=== PATIENT | female | born 1940 | race Caucasian/White ===

== ENCOUNTER 2016-07-06 09:49 | Inpatient (IN) | payer OTHER ==
[~2016-07-06] VITALS: Ht 157.5 cm; Wt 69.0 kg
[~2016-07-06 09:49] MED LIST: ADULT LOW DOSE81 M1 PO; ALTACE5 MG PO; AMLODIPINE BESY10 MG PO; AMLODIPINE BESYL5 MG PO; APRESOLINE100 MG PO; ASPIR 8181 M1 PO; ASPIR-LOW81 MG PO; ASPIR-TRIN325 M1 PO; ATORVASTATIN CA40 MG PO; Altace PO; Ascorbic Acid,Ester- PO; B-121000 MC2 PO; B-12500 MC1 SL; BACTRIM,SEPT1 TABLET PO; BAYER CHEWABLE81 MG PO; BAYER MIGRAINE1 EACH PO; CARAFATE100 MG/ML PO; CARVEDILOL12.5 MG PO; CARVEDILOL3.125 MG PO; CELEXA10 MG PO; CITALOPRAM HBR10 MG PO; COREG12.5 M1 PO; COUMADIN4 MG PO; COZAAR50 MG PO; CYANOCOBALAM1000 MCG PO; Coreg PO; DONEPEZIL HCL5 MG PO; DOXYCYCLINE HY100 MG PO; Dulcolax PO; ENDOCET 5-3251 EACH PO; FENOFIBRATE145 M1 PO; FENOFIBRATE160 M1 PO; FEROSUL325 MG PO; FUROSEMIDE40 MG PO; Feosol PO; Folvite PO; GLIPIZIDE XL10 MG PO; GLIPIZIDE10 MG PO; GLUCOTROL XL10 MG PO; Glucotrol PO; IRON PO; IRON325 M1 PO; IRON45 MG PO; JANUVIA100 MG PO; K-DUR20 MEQ PO; LANTUS 10100 UNITS/ SC; LANTUS 3 M100 UNITS1 SC; LEVAQUIN750 MG PO; LEVOTHYROXINE75 MCG PO; LIDODERM 5% P1 PATCH TD; LIPITOR40 MG PO; LOSARTAN POTASS50 MG PO; Levemir Flexpen SC; Levothroid,Synthroid PO; Lipitor PO; Lovenox SC; METOCLOPRAMIDE10 MG PO; MOBIC7.5 MG PO; MULTIVITAMIN1 EAC2 PO; Maalox, Mylanta PO; Milk Of Magnesia,MOM PO; Miralax, Glycolax PO; NEXIUM40 MG PO; NovoLOG Pen 3 ml SC; OMEPRAZOLE40 M1 PO; RAMIPRIL5 MG PO; Reglan PO; SUCRALFATE1 GM PO; SYNTHROID75 MCG PO; Senokot S,Pericolace PO; TIROSINT75 MCG PO; TRADJENTA5 MG PO; TRAMADOL HCL50 MG PO; TRAZODONE HCL50 MG PO; TYLENOL ARTHRI650 M2 PO; TYLENOL ARTHRI650 MG PO; TYLENOL REGULA325 MG PO; Theragran PO; Tricor PO; Tums,OsCal PO; ULTRACET1 TABLET PO; Ultram PO; VALSARTAN160 MG PO; VITAMIN B-12250 MCG PO; VITAMIN D-32000 UNIT PO; VITAMIN D1000 UNIT PO; VITAMIN D31000 UNI2 PO; VITAMIN D31000 UNIT PO; Vitamin B-12 PO; Vitamin D, Drisdol PO; XANAX0.25 MG PO; ZETIA10 MG PO; ZOFRAN4 MG PO; Zetia PO; celeXA PO
[2016-07-06 12:10] LABS: HEMATOCRIT 29.9 % (36.0-46.0); MCH 31.8 PG (29.0-34.0); MCHC 34.4 G/DL (30.0-36.0); MCV 92.3 FL (83-99); MEAN PLAT.VOLUME 10.4 uM^3 (9.5-12.4); PLATELET COUNT 178 K/uL (156-360); RBC DIS.WIDTH-CV 13.6 % (11.8-14.6); RBC DIS.WIDTH-SD 43.7 % (39-53); RED BLOOD COUNT 3.24 M/uL (3.80-5.20); WHITE BLOOD COUNT 5.2 K/uL (4.1-10.2)
[2016-07-06 12:22] LABS: CHLORIDE 109 mEq/L (99-109); POTASSIUM 3.8 mEq/L (3.7-5.4); SODIUM 142 mEq/L (136-147)
[2016-07-06 12:24] LABS: GLUCOSE 131 mg/dL (70-99)
[2016-07-06 12:25] LABS: ANION GAP 11 MEQ/L (2-14)
[2016-07-06 12:26] LABS: TOTAL BILIRUBIN 0.8 mg/dL (0.0-1.0)
[2016-07-06 12:28] LABS: ALKALINE PHOSPHATASE 61 IU/L (3-129); GFR ESTIMATE (CALCULATED) 42 mL/min/
[2016-07-06 12:29] LABS: UREA NITROGEN (BUN) 14 mg/dL (9-23)
[2016-07-06 18:46] LABS: TROP-I INTERPRETATION NEGATIVE; TROPONIN-I 0.03 ng/mL (0.0-0.30)
[2016-07-06 19:25] LABS: ADD MIUA? NO; BILIRUBIN NEGATIVE; BLOOD NEGATIVE; COLOR YELLOW ((YELLOW)); GLUCOSE (STRIP) NEGATIVE; KETONES NEGATIVE; LEUKOCYTES NEGATIVE; NITRITE NEGATIVE; PH, URINE 6.5 (5-8); PROTEIN (STRIP) NEGATIVE; UCUL ADDED? NO
[2016-07-06 21:36] VITALS: BP 131/60
[2016-07-07] VITALS: BP 133/70
[2016-07-07 00:54] LABS: POINT-OF-CARE METER ID UU13113700
[2016-07-07 04:46] VITALS: BP 149/70
[2016-07-07 06:52] LABS: ANION GAP 8 MEQ/L (2-14); CHLORIDE 107 MEQ/L (99-109); GFR ESTIMATE (CALCULATED) 42 mL/min/; GLUCOSE 123 mg/dL (70-99); POTASSIUM 3.7 MEQ/L (3.7-5.4); SAMPLE HEMOLYSIS CHECK 0; SAMPLE ICTERIC CHECK 0; SAMPLE LIPEMIA CHECK 0; SODIUM 143 MEQ/L (136-147); UREA NITROGEN (BUN) 13 mg/dL (9-23)
[2016-07-07 08:11] LABS: POINT-OF-CARE METER ID UU13113700
[2016-07-07 08:31] VITALS: BP 153/70
[2016-07-07] MEDS ORDERED: LEVOTHYROXINE75 MCG PO (10:09)
[2016-07-07] MEDS ORDERED: CARVEDILOL3.125 MG PO (10:15)
[2016-07-07] MEDS ORDERED: TRAMADOL HCL50 MG PO (10:15)
[2016-07-07] MEDS ORDERED: DONEPEZIL HCL5 MG PO (10:16)
[2016-07-07] MEDS ORDERED: AMLODIPINE BESY10 MG PO (10:17)
[2016-07-07] MEDS ORDERED: SUCRALFATE1 GM PO (10:17)
[2016-07-07] MEDS ORDERED: VALSARTAN160 MG PO (10:18)
[2016-07-07] MEDS ORDERED: FENOFIBRATE145 M1 PO (10:19)
[2016-07-07] MEDS ORDERED: TRAZODONE HCL50 MG PO (10:20)
[2016-07-07] MEDS ORDERED: ESOMEPRAZOLE MA40 MG PO (10:21)
[2016-07-07] MEDS ORDERED: ZETIA10 MG PO (10:21)
[2016-07-07] MEDS ORDERED: CYANOCOBALAM1000 MCG PO (10:22)
[2016-07-07] MEDS ORDERED: LO-DOSE ASPIRIN81 M2 PO (10:22)
[2016-07-07] MEDS ORDERED: VITAMIN D31000 UNIT PO (10:24)
[2016-07-07 12:14] VITALS: BP 148/72
[2016-07-07 13:10] LABS: POINT-OF-CARE METER ID UU14162513
[2016-07-07 15:12] LABS: INTER. NORMALIZED RATIO 1.3; PROTHROMBIN TIME 12.8 (9.2-11.2); PTT 25.7 (25-32)
[2016-07-07 15:47] LABS: TYPE OF FLUID PLEURAL
[2016-07-07 16:10] LABS: BODY FLUID RBC'S 1000 /MM^3 (0-100); BODY FLUID WBC'S 323 /MM^3 (0-500)
[2016-07-07 16:26] LABS: RED CELL AREA COUNTED ND; RED CELL DILUTION ND; WBC AREA COUNTED ND; WBC DILUTION ND; WHITE CELL RAW COUNT ND
[2016-07-07 16:32] LABS: BODY FLUID EOSINOPHILS 0 % (0-25); MONO RAW COUNT 64; MONONUCLEAR WBC'S 64 %; POLY RAW COUNT 36; POLYNUCLEAR WBC'S 36 % (0-25)
[2016-07-07 16:43] LABS: GLUCOSE 112 mg/dL (70-99); LACTATE DEHYDROGENASE 154 IU/L (20-246)
[2016-07-07 16:49] LABS: POINT-OF-CARE METER ID UU14162513
[2016-07-07 16:52] VITALS: BP 114/58
[2016-07-07 16:54] LABS: BODY FLUID LDH 89 IU/L; BODY FLUID PROTEIN < 3.0 G/DL
[2016-07-08 05:46] VITALS: BP 129/88
[2016-07-08 07:35] VITALS: BP 139/62
[2016-07-08 08:30] LABS: HEMATOCRIT 30.6 % (36.0-46.0); MCH 30.7 PG (29.0-34.0); MCHC 33.7 G/DL (30.0-36.0); MCV 91.1 FL (83-99); MEAN PLAT.VOLUME 10.8 uM^3 (9.5-12.4); PLATELET COUNT 193 K/uL (156-360); RBC DIS.WIDTH-CV 13.8 % (11.8-14.6); RBC DIS.WIDTH-SD 45.3 % (39-53); RED BLOOD COUNT 3.36 M/uL (3.80-5.20); WHITE BLOOD COUNT 4.7 K/uL (4.1-10.2)
[2016-07-08 09:02] LABS: CHLORIDE 107 MEQ/L (99-109); GFR ESTIMATE (CALCULATED) 46 mL/min/; POTASSIUM 3.7 MEQ/L (3.7-5.4); SODIUM 142 MEQ/L (136-147); TOTAL BILIRUBIN 0.8 MG/DL (0.0-1.0); UREA NITROGEN (BUN) 14 mg/dL (9-23)
[2016-07-08 09:03] LABS: ALKALINE PHOSPHATASE 51 IU/L (3-129); ANION GAP 9 MEQ/L (2-14); SAMPLE HEMOLYSIS CHECK 0; SAMPLE ICTERIC CHECK 0; SAMPLE LIPEMIA CHECK 0
[2016-07-08 09:06] LABS: GLUCOSE 63 mg/dL (70-99)
[2016-07-08 09:10] VITALS: BP 119/58
[2016-07-08 09:39] LABS: POINT-OF-CARE METER ID UU14162513
[2016-07-08 11:19] VITALS: BP 142/62
[2016-07-08 13:31] LABS: POINT-OF-CARE METER ID UU14162513
[2016-07-08 16:22] VITALS: BP 138/83
[2016-07-08 17:19] LABS: POINT-OF-CARE METER ID UU14162513
[2016-07-08 20:45] VITALS: BP 146/67
[2016-07-09 00:16] LABS: BODY FLUID PH 8.2 (())
[2016-07-09 00:26] VITALS: BP 94/49
[2016-07-09 04:25] VITALS: BP 133/60
[2016-07-09 06:53] LABS: POINT-OF-CARE METER ID UU14162513
[2016-07-09 08:00] VITALS: BP 136/71
[2016-07-09 13:00] LABS: POINT-OF-CARE METER ID UU13113831
== END 2016-07-09 15:09 | disposition home or self-care (01) | DRG 291 ==
LOC: EME 09:49 → EDOF 15:52 → 5WEST 15:52 → EDOF 17:18 → 5WEST 19:34
PROVIDERS: Hospitalist; Internal Medicine; Nurse Practitioner Adult Health; Nurse Practitioner Family; Radiology Diagnostic Radiology
PROC: 0W9B3ZZ Drainage of Left Pleural Cavity, Percutaneous Approach (ICD-10-PCS; principal; 2016-07-07)
DX: I13.0 Hypertensive heart and chronic kidney disease with heart failure and stage 1 through stage 4 chronic kidney disease, or unspecified chronic kidney disease (principal); I50.23 Acute on chronic systolic (congestive) heart failure; E11.22 Type 2 diabetes mellitus with diabetic chronic kidney disease; N18.3 Chronic kidney disease, stage 3 (moderate); L89.150 Pressure ulcer of sacral region, unstageable; I25.10 Atherosclerotic heart disease of native coronary artery without angina pectoris; I25.5 Ischemic cardiomyopathy; E78.5 Hyperlipidemia, unspecified; E03.9 Hypothyroidism, unspecified; I35.0 Nonrheumatic aortic (valve) stenosis; I34.2 Nonrheumatic mitral (valve) stenosis; E78.00 Pure hypercholesterolemia, unspecified; J45.909 Unspecified asthma, uncomplicated; D63.1 Anemia in chronic kidney disease; F03.90 Unspecified dementia, unspecified severity, without behavioral disturbance, psychotic disturbance, mood disturbance, and anxiety; Z79.4 Long term (current) use of insulin; I25.2 Old myocardial infarction; Z86.718 Personal history of other venous thrombosis and embolism; Z79.01 Long term (current) use of anticoagulants; Z79.82 Long term (current) use of aspirin
CPT/HCPCS: 71010; 71020; 80048; 80053; 81003; 82945; 82947 91; 82948; 83615; 83615 91; 83880; 83986 90; 84155; 84157; 84484; 85027; 85610; 85730; 87070; 87075; 87205; 88108; 88305; 89051; 93005; 93306; 99281; 99285; G0378; J1650; J1815; J1940

== ENCOUNTER 2017-07-31 10:48 | Inpatient (IN) | payer OTHER ==
[~2017-07-31] VITALS: Ht 157.5 cm; Wt 58.8 kg
[~2017-07-31 10:48] MED LIST changes: +ESOMEPRAZOLE MA40 MG PO; +LO-DOSE ASPIRIN81 M2 PO
[2017-07-31 11:25] LABS: BASOPHIL (%) 0.7 % (0-1); EOSINOPHIL COUNT 0.1 K/uL (0-0.3); HEMATOCRIT 32.6 % (36.0-46.0); HEMOGLOBIN 10.9 G/DL (11.9-15.5); IMMATURE GRANULOCYTE (%) 0.4 % (0.0-0.7); LYMPHOCYTE (%) 9.5 % (15-42); LYMPHOCYTE COUNT 0.3 K/uL (1.0-2.8); MCH 33.4 PG (29.0-34.0); MCHC 33.4 G/DL (30.0-36.0); MONOCYTE (%) 8.4 % (3-12); MONOCYTE COUNT 0.2 K/uL (0-0.8); NEUTROPHIL COUNT 2.1 K/uL (1.8-6.4); PLATELET COUNT 101 K/uL (156-360); RBC DIS.WIDTH-CV 13.2 % (11.8-14.6); RBC DIS.WIDTH-SD 49.3 % (39-53); RED BLOOD COUNT 3.26 M/uL (3.80-5.20); WHITE BLOOD COUNT 2.7 K/uL (4.1-10.2)
[2017-07-31 11:44] LABS: TROP-I INTERPRETATION NEGATIVE; TROPONIN-I 0.03 ng/mL (0.0-0.30)
[2017-07-31 11:46] LABS: ALBUMIN 2.1 G/DL (3.2-4.8); CHLORIDE 103 MEQ/L (99-109); POTASSIUM 3.7 MEQ/L (3.7-5.4); SODIUM 141 MEQ/L (136-147); TOTAL BILIRUBIN 1.3 MG/DL (0.0-1.0)
[2017-07-31 11:52] LABS: ALKALINE PHOSPHATASE 56 IU/L (3-129); ALT (GPT) 7 IU/L (3-49); AST (GOT) 41 IU/L (2-34); CREATININE 1.6 MG/DL (0.6-1.3); GFR ESTIMATE (CALCULATED) 33 mL/min/; GLUCOSE 97 mg/dL (70-99); TOTAL PROTEIN 5.1 G/DL (6.4-8.3); UREA NITROGEN (BUN) 21 mg/dL (9-23)
[2017-07-31 13:08] LABS: APPEARANCE CLEAR ((CLEAR)); BILIRUBIN NEGATIVE; BLOOD NEGATIVE; COLOR YELLOW ((YELLOW)); GLUCOSE (STRIP) NEGATIVE; KETONES NEGATIVE; LEUKOCYTES SMALL; NITRITE NEGATIVE; PROTEIN (STRIP) NEGATIVE; SPECIFIC GRAVITY 1.006 (1.000-1.030); UROBILINOGEN 0.2 MG/DL (0.2-1.0)
[2017-07-31 13:12] LABS: BACTERIA 3+ /HPF; CALCIUM OXALATE CRYSTALS 1+ /HPF; EPITHELIAL CELLS 1+ /HPF; MUCUS TRACE /LPF; RED BLOOD CELLS 0-5 /HPF (0-5); UCUL ADDED? YES
[2017-07-31] MEDS ORDERED: ARICEPT5 MG PO (13:42)
[2017-07-31] MEDS ORDERED: TRAZODONE HCL50 MG PO (13:43)
[2017-07-31] MEDS ORDERED: NEXIUM40 MG PO (13:44)
[2017-07-31] MEDS ORDERED: TYLENOL ARTHRI650 MG PO (13:45)
[2017-07-31] MEDS ORDERED: PRAVACHOL40 MG PO (13:45)
[2017-07-31] MEDS ORDERED: LASIX20 MG PO (13:46)
[2017-07-31 15:38] LABS: TROP-I INTERPRETATION NEGATIVE; TROPONIN-I 0.04 ng/mL (0.0-0.30)
[2017-07-31 15:59] VITALS: BP 157/66
[2017-07-31 19:43] VITALS: BP 170/75
[2017-07-31 21:27] LABS: TROP-I INTERPRETATION NEGATIVE; TROPONIN-I 0.05 ng/mL (0.0-0.30)
[2017-07-31 23:26] VITALS: BP 144/66
[2017-08-01 04:29] VITALS: BP 162/72
[2017-08-01 05:39] LABS: HEMATOCRIT 35.1 % (36.0-46.0); HEMOGLOBIN 11.4 G/DL (11.9-15.5); MCH 32.1 PG (29.0-34.0); MCHC 32.5 G/DL (30.0-36.0); MCV 98.9 FL (83-99); PLATELET COUNT 117 K/uL (156-360); RBC DIS.WIDTH-CV 13.2 % (11.8-14.6); RED BLOOD COUNT 3.55 M/uL (3.80-5.20)
[2017-08-01 06:08] LABS: ALBUMIN 2.2 G/DL (3.2-4.8); ALKALINE PHOSPHATASE 48 IU/L (3-129); ALT (GPT) 6 IU/L (3-49); AST (GOT) 42 IU/L (2-34); CHLORIDE 99 MEQ/L (99-109); CREATININE 1.5 MG/DL (0.6-1.3); GFR ESTIMATE (CALCULATED) 36 mL/min/; GLUCOSE 90 mg/dL (70-99); POTASSIUM 3.7 MEQ/L (3.7-5.4); SODIUM 140 MEQ/L (136-147); TOTAL BILIRUBIN 1.5 MG/DL (0.0-1.0); TOTAL PROTEIN 5.2 G/DL (6.4-8.3); UREA NITROGEN (BUN) 22 mg/dL (9-23)
[2017-08-01 07:35] VITALS: BP 130/61
[2017-08-01 12:09] VITALS: BP 145/64
[2017-08-01 15:41] VITALS: BP 136/64
[2017-08-01 20:23] VITALS: BP 133/58
[2017-08-01 23:16] VITALS: BP 137/60
[2017-08-02 03:47] VITALS: BP 138/60
[2017-08-02 08:01] LABS: HEMATOCRIT 34.4 % (36.0-46.0); HEMOGLOBIN 11.4 G/DL (11.9-15.5); MCH 33.2 PG (29.0-34.0); MCHC 33.1 G/DL (30.0-36.0); MCV 100.3 FL (83-99); PLATELET COUNT 106 K/uL (156-360); RBC DIS.WIDTH-CV 13.3 % (11.8-14.6); RBC DIS.WIDTH-SD 49.3 % (39-53); RED BLOOD COUNT 3.43 M/uL (3.80-5.20); WHITE BLOOD COUNT 2.4 K/uL (4.1-10.2)
[2017-08-02 08:22] LABS: ALBUMIN 2.1 G/DL (3.2-4.8); ALKALINE PHOSPHATASE 53 IU/L (3-129); ALT (GPT) 7 IU/L (3-49); AST (GOT) 42 IU/L (2-34); CHLORIDE 98 MEQ/L (99-109); CREATININE 1.8 MG/DL (0.6-1.3); GFR ESTIMATE (CALCULATED) 29 mL/min/; GLUCOSE 82 mg/dL (70-99); POTASSIUM 3.7 MEQ/L (3.7-5.4); SODIUM 138 MEQ/L (136-147); TOTAL BILIRUBIN 1.3 MG/DL (0.0-1.0); UREA NITROGEN (BUN) 25 mg/dL (9-23)
[2017-08-02 09:14] VITALS: BP 138/59
[2017-08-02 12:04] VITALS: BP 136/63
[2017-08-02 15:56] VITALS: BP 111/75
[2017-08-02 20:01] VITALS: BP 128/56
[2017-08-02 23:57] VITALS: BP 131/60
[2017-08-03 03:36] VITALS: BP 144/65
[2017-08-03 06:03] LABS: A/G RATIO 0.7 (1.1-1.8); ALBUMIN 2.1 G/DL (3.4-5.0); C-REACTIVE PROTEIN 40.1 MG/L (0-10); CHLORIDE 100 MEQ/L (99-109); CREATININE 1.8 MG/DL (0.6-1.3); GFR ESTIMATE (CALCULATED) 29 mL/min/; GLOBULINS 2.9 G/DL (2.3-3.5); GLUCOSE 91 mg/dL (70-99); HEMATOCRIT 32.9 % (36.0-46.0); HEMOGLOBIN 10.8 G/DL (11.9-15.5); MCH 32.4 PG (29.0-34.0); MCHC 32.8 G/DL (30.0-36.0); MCV 98.8 FL (83-99); PLATELET COUNT 117 K/uL (156-360); POTASSIUM 4.3 MEQ/L (3.7-5.4); RBC DIS.WIDTH-CV 13.2 % (11.8-14.6); RBC DIS.WIDTH-SD 47.9 % (39-53); RED BLOOD COUNT 3.33 M/uL (3.80-5.20); SODIUM 139 MEQ/L (136-147); UREA NITROGEN (BUN) 34 mg/dL (9-23); WHITE BLOOD COUNT 2.7 K/uL (4.1-10.2)
[2017-08-03 07:59] LABS: FOLIC ACID (FOLATE) 7.5 NG/ML (5.0-22.0)
[2017-08-03 08:45] VITALS: BP 136/65
[2017-08-03 10:49] LABS: ERTH.SED.RATE 25 MM/HR (0-30)
[2017-08-03 12:23] VITALS: BP 112/56
[2017-08-03 16:47] VITALS: BP 119/58
[2017-08-03 20:00] VITALS: BP 107/52
[2017-08-03 23:39] VITALS: BP 108/52
[2017-08-04 03:36] VITALS: BP 123/57
[2017-08-04 05:21] LABS: BASOPHIL (%) 1.3 % (0-1); EOSINOPHIL (%) 4.4 % (0-5); EOSINOPHIL COUNT 0.1 K/uL (0-0.3); HEMATOCRIT 29.5 % (36.0-46.0); IMMATURE GRANULOCYTE (%) 0.4 % (0.0-0.7); LYMPHOCYTE (%) 15.1 % (15-42); LYMPHOCYTE COUNT 0.3 K/uL (1.0-2.8); MCH 33.2 PG (29.0-34.0); MCHC 33.9 G/DL (30.0-36.0); MONOCYTE (%) 11.1 % (3-12); MONOCYTE COUNT 0.3 K/uL (0-0.8); NEUTROPHIL (%) 67.7 % (45-76); NEUTROPHIL COUNT 1.5 K/uL (1.8-6.4); PLATELET COUNT 103 K/uL (156-360); RBC DIS.WIDTH-CV 13.3 % (11.8-14.6); RED BLOOD COUNT 3.01 M/uL (3.80-5.20); WHITE BLOOD COUNT 2.3 K/uL (4.1-10.2)
[2017-08-04 05:54] LABS: CHLORIDE 100 MEQ/L (99-109); CREATININE 1.9 MG/DL (0.6-1.3); GFR ESTIMATE (CALCULATED) 27 mL/min/; GLUCOSE 116 mg/dL (70-99); MAGNESIUM 1.7 mg/dl (1.3-2.7); PHOSPHORUS 2.7 mg/dL (2.5-4.9); POTASSIUM 3.6 MEQ/L (3.7-5.4); SODIUM 138 MEQ/L (136-147); UREA NITROGEN (BUN) 41 mg/dL (9-23)
[2017-08-04 07:25] VITALS: BP 107/55
[2017-08-04 10:04] LABS: ALBUMIN 2.09 G/DL (3.6-4.9); ALPHA-1 GLOBULIN 0.34 G/DL (0.15-0.40); ALPHA-2 GLOBULIN 0.42 G/DL (0.45-0.85); BETA-GLOBULIN 1.45 G/DL (0.65-1.15); GAMMA-GLOBULIN 0.72 G/DL (0.60-1.35)
[2017-08-04 11:03] LABS: HEPATITIS C ANTIBODY Nonreactive
[2017-08-04 16:23] VITALS: BP 119/58
[2017-08-04 19:32] VITALS: BP 113/58
[2017-08-05 00:19] VITALS: BP 115/54
[2017-08-05 04:26] VITALS: BP 124/60
[2017-08-05 07:06] LABS: CHLORIDE 101 MEQ/L (99-109); CREATININE 1.9 MG/DL (0.6-1.3); FERRITIN 378 NG/ML (10-291); GFR ESTIMATE (CALCULATED) 27 mL/min/; GLUCOSE 88 mg/dL (70-99); SODIUM 137 MEQ/L (136-147); UREA NITROGEN (BUN) 47 mg/dL (9-23)
[2017-08-05 07:12] LABS: POTASSIUM 4.6 MEQ/L (3.7-5.4)
[2017-08-05 07:38] VITALS: BP 101/51
[2017-08-05 08:54] LABS: BASOPHIL (%) 0.7 % (0-1); EOSINOPHIL (%) 5.3 % (0-5); EOSINOPHIL COUNT 0.2 K/uL (0-0.3); HEMATOCRIT 30.9 % (36.0-46.0); HEMOGLOBIN 10.4 G/DL (11.9-15.5); IMMATURE GRANULOCYTE (%) 0.4 % (0.0-0.7); LYMPHOCYTE (%) 13.1 % (15-42); LYMPHOCYTE COUNT 0.4 K/uL (1.0-2.8); MCH 33.1 PG (29.0-34.0); MCHC 33.7 G/DL (30.0-36.0); MCV 98.4 FL (83-99); MONOCYTE (%) 8.1 % (3-12); MONOCYTE COUNT 0.2 K/uL (0-0.8); NEUTROPHIL (%) 72.4 % (45-76); NEUTROPHIL COUNT 2.1 K/uL (1.8-6.4); PLATELET COUNT 105 K/uL (156-360); RBC DIS.WIDTH-CV 13.5 % (11.8-14.6); RBC DIS.WIDTH-SD 48.1 % (39-53); RED BLOOD COUNT 3.14 M/uL (3.80-5.20); WHITE BLOOD COUNT 2.8 K/uL (4.1-10.2)
[2017-08-05 10:53] LABS: ABS NEUTROPHIL COUNT 2.5; ANISOCYTOSIS 1+; EOSINOPHIL ABS CT 0.1; EOSINOPHILS 5.1 % (0-5.0); LYMPHOCYTES 1.7 % (15.0-45.0); MACROCYTES 1+; MONOCYTES 3.4 % (0-9.0); PLAT.SUFFICIENCY DECREASED; SEG.NEUTROPHILS 89.8 % (46.0-76.0)
[2017-08-05 17:07] VITALS: BP 110/68
[2017-08-05 19:35] VITALS: BP 106/55
[2017-08-05 23:33] VITALS: BP 105/51
[2017-08-06 06:01] LABS: BASOPHIL (%) 0.7 % (0-1); EOSINOPHIL (%) 6.8 % (0-5); EOSINOPHIL COUNT 0.2 K/uL (0-0.3); HEMATOCRIT 29.6 % (36.0-46.0); HEMOGLOBIN 9.7 G/DL (11.9-15.5); IMMATURE GRANULOCYTE (%) 0.4 % (0.0-0.7); LYMPHOCYTE (%) 10.7 % (15-42); LYMPHOCYTE COUNT 0.3 K/uL (1.0-2.8); MCH 32.3 PG (29.0-34.0); MCHC 32.8 G/DL (30.0-36.0); MCV 98.7 FL (83-99); MONOCYTE (%) 8.9 % (3-12); MONOCYTE COUNT 0.3 K/uL (0-0.8); NEUTROPHIL (%) 72.5 % (45-76); PLATELET COUNT 106 K/uL (156-360); RBC DIS.WIDTH-CV 13.2 % (11.8-14.6); RBC DIS.WIDTH-SD 48.2 % (39-53); WHITE BLOOD COUNT 2.8 K/uL (4.1-10.2)
[2017-08-06 06:30] LABS: CHLORIDE 102 MEQ/L (99-109); CREATININE 2.1 MG/DL (0.6-1.3); GFR ESTIMATE (CALCULATED) 24 mL/min/; POTASSIUM 4.6 MEQ/L (3.7-5.4); SODIUM 136 MEQ/L (136-147); UREA NITROGEN (BUN) 55 mg/dL (9-23)
[2017-08-06 06:40] LABS: GLUCOSE 113 mg/dL (70-99)
[2017-08-06 07:48] VITALS: BP 112/56
[2017-08-06 16:03] VITALS: BP 124/56
[2017-08-07 00:25] VITALS: BP 102/59
[2017-08-07 07:06] LABS: EOSINOPHIL (%) 8.2 % (0-5); EOSINOPHIL COUNT 0.2 K/uL (0-0.3); HEMOGLOBIN 9.9 G/DL (11.9-15.5); IMMATURE GRANULOCYTE (%) 0.5 % (0.0-0.7); LYMPHOCYTE (%) 16.4 % (15-42); LYMPHOCYTE COUNT 0.3 K/uL (1.0-2.8); MONOCYTE (%) 10.6 % (3-12); MONOCYTE COUNT 0.2 K/uL (0-0.8); NEUTROPHIL (%) 63.3 % (45-76); NEUTROPHIL COUNT 1.3 K/uL (1.8-6.4); PLATELET COUNT 92 K/uL (156-360); RBC DIS.WIDTH-CV 13.3 % (11.8-14.6); RBC DIS.WIDTH-SD 49.1 % (39-53); WHITE BLOOD COUNT 2.1 K/uL (4.1-10.2)
[2017-08-07 07:38] LABS: CHLORIDE 104 MEQ/L (99-109); CREATININE 2.2 MG/DL (0.6-1.3); GFR ESTIMATE (CALCULATED) 23 mL/min/; GLUCOSE 93 mg/dL (70-99); POTASSIUM 5.1 MEQ/L (3.7-5.4); SODIUM 138 MEQ/L (136-147); UREA NITROGEN (BUN) 59 mg/dL (9-23)
[2017-08-07 07:50] VITALS: BP 108/54
[2017-08-07 16:23] VITALS: BP 90/42
[2017-08-07 19:57] VITALS: BP 111/55
[2017-08-08 00:05] VITALS: BP 104/51
[2017-08-08 06:07] LABS: ALBUMIN 1.8 G/DL (3.2-4.8); CHLORIDE 104 MEQ/L (99-109); CREATININE 2.1 MG/DL (0.6-1.3); GFR ESTIMATE (CALCULATED) 24 mL/min/; GLUCOSE 94 mg/dL (70-99); POTASSIUM 5.7 MEQ/L (3.7-5.4); SODIUM 136 MEQ/L (136-147); UREA NITROGEN (BUN) 54 mg/dL (9-23)
[2017-08-08 07:54] VITALS: BP 110/56
[2017-08-08 10:19] LABS: CLINICAL INFORMATION NOT PROVIDED; NUMBER OF MARKERS 24; SPECIMEN TYPE BONE MARROW; SPECIMEN VIABILITY 97
[2017-08-08 16:35] VITALS: BP 96/46
[2017-08-08 20:09] VITALS: BP 109/56
[2017-08-08 23:31] VITALS: BP 105/51
[2017-08-09 04:55] LABS: ALBUMIN 2.7 g/dL (3.2-4.8); CHLORIDE 102 mEq/L (99-109); POTASSIUM 4.7 mEq/L (3.7-5.4); SODIUM 133 mEq/L (136-147)
[2017-08-09 04:57] LABS: GLUCOSE 79 mg/dL (70-99)
[2017-08-09 05:01] LABS: GFR ESTIMATE (CALCULATED) 33 mL/min/; PHOSPHORUS 2.5 mg/dL (2.5-4.9)
[2017-08-09 05:02] LABS: UREA NITROGEN (BUN) 44 mg/dL (9-23)
[2017-08-09 05:11] LABS: CREATININE 1.6 mg/dL (0.6-1.3)
[2017-08-09 09:40] VITALS: BP 117/56
[2017-08-09 16:47] VITALS: BP 107/76
[2017-08-10] VITALS: BP 135/78
[2017-08-10 05:28] VITALS: BP 105/54
[2017-08-10 08:12] VITALS: BP 134/63
[2017-08-10] MEDS ORDERED: CARVEDILOL6.25 MG PO (11:20)
[2017-08-10] MEDS ORDERED: FUROSEMIDE40 MG PO (11:21)
[2017-08-10] MEDS ORDERED: TRAMADOL HCL50 MG PO (11:21)
[2017-08-10 15:55] VITALS: BP 120/76
== END 2017-08-10 20:01 | DRG 291 ==
LOC: EME 10:48 → EDOF 12:54 → 3EAST 12:54 → ENRESERV 12:56 → CANRESERV 12:56 → EDOF 13:15 → ENRESERV 13:18 → 3EAST 15:42
PROVIDERS: Emergency Medicine; Internal Medicine; Internal Medicine Hematology & Oncology; Internal Medicine Nephrology; Physician Assistant
PROC: 07DR3ZX Extraction of Iliac Bone Marrow, Percutaneous Approach, Diagnostic (ICD-10-PCS; principal; 2017-08-05)
DX: I13.0 Hypertensive heart and chronic kidney disease with heart failure and stage 1 through stage 4 chronic kidney disease, or unspecified chronic kidney disease (principal); I50.23 Acute on chronic systolic (congestive) heart failure; N17.9 Acute kidney failure, unspecified; N18.3 Chronic kidney disease, stage 3 (moderate); E11.22 Type 2 diabetes mellitus with diabetic chronic kidney disease; D63.1 Anemia in chronic kidney disease; D61.818 Other pancytopenia; N12 Tubulo-interstitial nephritis, not specified as acute or chronic; B96.20 Unspecified Escherichia coli [E. coli] as the cause of diseases classified elsewhere; T47.1X5A Adverse effect of other antacids and anti-gastric-secretion drugs, initial encounter; E87.5 Hyperkalemia; E83.39 Other disorders of phosphorus metabolism; I25.5 Ischemic cardiomyopathy; E46 Unspecified protein-calorie malnutrition; E03.9 Hypothyroidism, unspecified; R19.7 Diarrhea, unspecified; E87.6 Hypokalemia; I35.0 Nonrheumatic aortic (valve) stenosis; F03.90 Unspecified dementia, unspecified severity, without behavioral disturbance, psychotic disturbance, mood disturbance, and anxiety; I25.10 Atherosclerotic heart disease of native coronary artery without angina pectoris; I25.2 Old myocardial infarction; E78.00 Pure hypercholesterolemia, unspecified; I27.20 Pulmonary hypertension, unspecified; J43.9 Emphysema, unspecified; K21.9 Gastro-esophageal reflux disease without esophagitis; F41.9 Anxiety disorder, unspecified; F32.9 Major depressive disorder, single episode, unspecified; Z86.73 Personal history of transient ischemic attack (TIA), and cerebral infarction without residual deficits; R29.6 Repeated falls; Z60.2 Problems related to living alone; Z96.642 Presence of left artificial hip joint; Z90.710 Acquired absence of both cervix and uterus; Z79.82 Long term (current) use of aspirin; Z82.49 Family history of ischemic heart disease and other diseases of the circulatory system; Z82.3 Family history of stroke
CPT/HCPCS: 71046; 74018; 76770; 77012; 77075; 80048; 80053; 80069; 81003; 82232; 82607; 82728; 82746; 82948; 83735; 83880; 83883 90; 84100; 84165; 84484; 85007; 85025; 85027; 85652; 86140; 86334; 86803; 87077; 87086; 87186; 87493; 90686; 93005; 93306; 97530 GO; 99281; 99285; J0696; J1644; J1815; J1940; J3010; J7050; P9047

== ENCOUNTER 2017-10-17 12:58 | Inpatient (IN) | payer OTHER ==
[~2017-10-17] VITALS: Ht 161.3 cm; Wt 60.1 kg
[~2017-10-17 12:58] MED LIST changes: +ACYCLOVIR400 MG PO; +ARICEPT5 MG PO; +CARVEDILOL6.25 MG PO; +DEXAMETHASONE4 MG PO; +LASIX20 MG PO; +LIPITOR10 MG PO; +REMERON15 M2 PO
[2017-10-17 14:42] LABS: HEMATOCRIT 26.2 % (36.0-46.0); MCHC 34.4 G/DL (30.0-36.0); MCV 101.9 FL (83-99); PLATELET COUNT 54 K/uL (156-360); RBC DIS.WIDTH-CV 16.4 % (11.8-14.6); RBC DIS.WIDTH-SD 61.1 % (39-53); RED BLOOD COUNT 2.57 M/uL (3.80-5.20); WHITE BLOOD COUNT 3.9 K/uL (4.1-10.2)
[2017-10-17 14:53] LABS: ALBUMIN 2.2 g/dL (3.2-4.8); CHLORIDE 104 mEq/L (99-109); POTASSIUM 3.7 mEq/L (3.7-5.4); SODIUM 137 mEq/L (136-147)
[2017-10-17 14:55] LABS: GLUCOSE 117 mg/dL (70-99); TOTAL PROTEIN 4.5 g/dL (6.4-8.3)
[2017-10-17 14:57] LABS: TOTAL BILIRUBIN 1.6 mg/dL (0.0-1.0)
[2017-10-17 14:59] LABS: ALKALINE PHOSPHATASE 50 IU/L (3-129); CREATININE 3.1 mg/dL (0.6-1.3); GFR ESTIMATE (CALCULATED) 15 mL/min/
[2017-10-17 15:00] LABS: AST (GOT) 63 IU/L (2-34); UREA NITROGEN (BUN) 54 mg/dL (9-23)
[2017-10-17 15:02] LABS: ALT (GPT) 14 IU/L (3-49)
[2017-10-17 15:40] LABS: APPEARANCE CLEAR ((CLEAR)); BILIRUBIN NEGATIVE; BLOOD NEGATIVE; COLOR YELLOW ((YELLOW)); GLUCOSE (STRIP) NEGATIVE; KETONES NEGATIVE; LEUKOCYTES NEGATIVE; NITRITE NEGATIVE; PROTEIN (STRIP) NEGATIVE; SPECIFIC GRAVITY 1.008 (1.000-1.030); UCUL ADDED? NO; UROBILINOGEN 0.2 MG/DL (0.2-1.0)
[2017-10-17 20:10] VITALS: BP 140/58
[2017-10-18] VITALS (12 sets, daily range): BP systolic 102–146; BP diastolic 54–66
[2017-10-18 06:28] LABS: BASOPHIL (%) 0.3 % (0-1); EOSINOPHIL (%) 3.6 % (0-5); EOSINOPHIL COUNT 0.1 K/uL (0-0.3); HEMATOCRIT 24.5 % (36.0-46.0); HEMOGLOBIN 8.3 G/DL (11.9-15.5); IMMATURE GRANULOCYTE (%) 0.6 % (0.0-0.7); LYMPHOCYTE (%) 7.2 % (15-42); LYMPHOCYTE COUNT 0.2 K/uL (1.0-2.8); MCH 34.6 PG (29.0-34.0); MCHC 33.9 G/DL (30.0-36.0); MCV 102.1 FL (83-99); MONOCYTE COUNT 0.2 K/uL (0-0.8); NEUTROPHIL (%) 82.3 % (45-76); NEUTROPHIL COUNT 2.7 K/uL (1.8-6.4); RBC DIS.WIDTH-CV 16.2 % (11.8-14.6); RBC DIS.WIDTH-SD 61.3 % (39-53); WHITE BLOOD COUNT 3.3 K/uL (4.1-10.2)
[2017-10-18 06:37] LABS: CHLORIDE 109 MEQ/L (99-109); CREATININE 2.7 MG/DL (0.6-1.3); GFR ESTIMATE (CALCULATED) 18 mL/min/; GLUCOSE 70 mg/dL (70-99); POTASSIUM 3.5 MEQ/L (3.7-5.4); SODIUM 142 MEQ/L (136-147); UREA NITROGEN (BUN) 47 mg/dL (9-23)
[2017-10-18 07:11] LABS: PLAT.SUFFICIENCY DECREASED; PLATELET COUNT 47 K/uL (156-360)
[2017-10-18 07:51] LABS: INTER. NORMALIZED RATIO 1.4
[2017-10-18 07:54] LABS: PTT 31.4 SEC (25-37)
[2017-10-18 11:15] LABS: TYPE OF FLUID PLEURAL
[2017-10-18 11:52] LABS: BODY FLUID EOSINOPHILS 1 % (0-25); BODY FLUID RBC'S < 1000 /MM^3 (0-100); BODY FLUID WBC'S 38 /MM^3 (0-500); MONONUCLEAR WBC'S 94 %; POLYNUCLEAR WBC'S 5 % (0-25)
[2017-10-18 12:12] LABS: BODY FLUID GLUCOSE 86 MG/DL; BODY FLUID LDH 73 IU/L; BODY FLUID PROTEIN < 3.0 G/DL
[2017-10-19 00:18] VITALS: BP 137/63
[2017-10-19 06:07] LABS: CHLORIDE 108 MEQ/L (99-109); CREATININE 2.6 MG/DL (0.6-1.3); GFR ESTIMATE (CALCULATED) 19 mL/min/; GLUCOSE 85 mg/dL (70-99); POTASSIUM 3.6 MEQ/L (3.7-5.4); SODIUM 137 MEQ/L (136-147); UREA NITROGEN (BUN) 45 mg/dL (9-23)
[2017-10-19 06:15] LABS: VANCOMYCIN, TROUGH 7.2 MCG/ML (10-20)
[2017-10-19 06:45] LABS: HEMATOCRIT 31.6 % (36.0-46.0); MCH 33.9 PG (29.0-34.0); MCHC 35.4 G/DL (30.0-36.0); NRBC (%) 1.4 /100 WBC (0-0); RBC DIS.WIDTH-CV 17.6 % (11.8-14.6); RBC DIS.WIDTH-SD 60.2 % (39-53); WHITE BLOOD COUNT 3.7 K/uL (4.1-10.2)
[2017-10-19 06:52] LABS: APPEARANCE SL.HAZY/YELLOW
[2017-10-19 07:19] LABS: IMM.PLATELET FRACTION 3.5 (1-7); PLAT.SUFFICIENCY VERY DECREASED; PLATELET COUNT 41 K/uL (156-360)
[2017-10-19 07:20] VITALS: BP 121/64
[2017-10-19 07:24] LABS: HEMOGLOBIN 11.2 G/DL (11.9-15.5); MCV 95.8 FL (83-99)
[2017-10-19 15:25] VITALS: BP 124/68
[2017-10-19 21:40] VITALS: BP 137/63
[2017-10-19 23:53] VITALS: BP 92/58
[2017-10-20 03:27] VITALS: BP 140/60
[2017-10-20 05:44] LABS: BASOPHIL (%) 0.2 % (0-1); EOSINOPHIL (%) 4.6 % (0-5); EOSINOPHIL COUNT 0.2 K/uL (0-0.3); HEMATOCRIT 34.6 % (36.0-46.0); HEMOGLOBIN 12.1 G/DL (11.9-15.5); IMMATURE GRANULOCYTE (%) 0.5 % (0.0-0.7); LYMPHOCYTE (%) 7.2 % (15-42); LYMPHOCYTE COUNT 0.3 K/uL (1.0-2.8); MCV 97.2 FL (83-99); MONOCYTE (%) 9.4 % (3-12); MONOCYTE COUNT 0.4 K/uL (0-0.8); NEUTROPHIL (%) 78.1 % (45-76); NEUTROPHIL COUNT 3.3 K/uL (1.8-6.4); RBC DIS.WIDTH-CV 17.8 % (11.8-14.6); RBC DIS.WIDTH-SD 61.1 % (39-53); RED BLOOD COUNT 3.56 M/uL (3.80-5.20); WHITE BLOOD COUNT 4.2 K/uL (4.1-10.2)
[2017-10-20 05:46] LABS: PLATELET COUNT 70 K/uL (156-360)
[2017-10-20 06:10] LABS: CHLORIDE 109 MEQ/L (99-109); CREATININE 2.5 MG/DL (0.6-1.3); GFR ESTIMATE (CALCULATED) 20 mL/min/; GLUCOSE 69 mg/dL (70-99); SODIUM 138 MEQ/L (136-147); UREA NITROGEN (BUN) 47 mg/dL (9-23)
[2017-10-20 06:15] LABS: POTASSIUM 4.6 MEQ/L (3.7-5.4); VANCOMYCIN, TROUGH 16.1 MCG/ML (10-20)
[2017-10-20 07:30] VITALS: BP 147/65
[2017-10-20 11:50] LABS: C DIFF TOXIN POSITIVE (NEGATIVE)
[2017-10-20 15:40] VITALS: BP 140/64
[2017-10-20] MEDS ORDERED: FERROUS SULFAT325 MG PO (15:46)
[2017-10-20] MEDS ORDERED: FEXOFENADINE H180 MG PO (15:46)
[2017-10-20] MEDS ORDERED: ESOMEPRAZOLE MA40 MG PO (15:46)
[2017-10-20 23:58] VITALS: BP 109/62
[2017-10-21 06:18] LABS: BASOPHIL (%) 0.6 % (0-1); EOSINOPHIL (%) 5.5 % (0-5); EOSINOPHIL COUNT 0.2 K/uL (0-0.3); HEMATOCRIT 36.5 % (36.0-46.0); HEMOGLOBIN 12.1 G/DL (11.9-15.5); IMMATURE GRANULOCYTE (%) 0.3 % (0.0-0.7); LYMPHOCYTE (%) 6.9 % (15-42); LYMPHOCYTE COUNT 0.2 K/uL (1.0-2.8); MCH 33.2 PG (29.0-34.0); MCHC 33.2 G/DL (30.0-36.0); MONOCYTE (%) 10.7 % (3-12); MONOCYTE COUNT 0.4 K/uL (0-0.8); NEUTROPHIL COUNT 2.6 K/uL (1.8-6.4); PLATELET COUNT 72 K/uL (156-360); RBC DIS.WIDTH-CV 17.8 % (11.8-14.6); RBC DIS.WIDTH-SD 63.7 % (39-53); RED BLOOD COUNT 3.65 M/uL (3.80-5.20); WHITE BLOOD COUNT 3.5 K/uL (4.1-10.2)
[2017-10-21 06:39] LABS: CHLORIDE 110 MEQ/L (99-109); CREATININE 2.1 MG/DL (0.6-1.3); GFR ESTIMATE (CALCULATED) 24 mL/min/; POTASSIUM 4.5 MEQ/L (3.7-5.4); SODIUM 140 MEQ/L (136-147); UREA NITROGEN (BUN) 41 mg/dL (9-23)
[2017-10-21 06:40] LABS: GLUCOSE 96 mg/dL (70-99)
[2017-10-21 08:50] VITALS: BP 138/64
[2017-10-21 11:15] VITALS: BP 90/57
[2017-10-21 11:56] VITALS: BP 98/57
[2017-10-21 14:56] VITALS: BP 115/56
[2017-10-21 15:36] VITALS: BP 95/55
[2017-10-21 23:41] VITALS: BP 135/77
[2017-10-22] VITALS (7 sets, daily range): BP systolic 80–152; BP diastolic 47–67
[2017-10-22 06:03] LABS: BASOPHIL COUNT 0.1 K/uL (0-0.1); EOSINOPHIL (%) 7.2 % (0-5); EOSINOPHIL COUNT 0.4 K/uL (0-0.3); HEMATOCRIT 36.2 % (36.0-46.0); HEMOGLOBIN 12.2 G/DL (11.9-15.5); IMMATURE GRANULOCYTE (%) 0.4 % (0.0-0.7); LYMPHOCYTE COUNT 0.4 K/uL (1.0-2.8); MCH 34.5 PG (29.0-34.0); MCHC 33.7 G/DL (30.0-36.0); MCV 102.3 FL (83-99); MONOCYTE (%) 8.5 % (3-12); MONOCYTE COUNT 0.4 K/uL (0-0.8); NEUTROPHIL (%) 75.9 % (45-76); NEUTROPHIL COUNT 3.8 K/uL (1.8-6.4); RBC DIS.WIDTH-CV 17.6 % (11.8-14.6); RBC DIS.WIDTH-SD 65.3 % (39-53); RED BLOOD COUNT 3.54 M/uL (3.80-5.20)
[2017-10-22 06:07] LABS: PLATELET COUNT 128 K/uL (156-360)
[2017-10-22 06:31] LABS: CHLORIDE 107 MEQ/L (99-109); GFR ESTIMATE (CALCULATED) 26 mL/min/; GLUCOSE 98 mg/dL (70-99); POTASSIUM 5.3 MEQ/L (3.7-5.4); SODIUM 137 MEQ/L (136-147); UREA NITROGEN (BUN) 41 mg/dL (9-23)
[2017-10-22 09:42] LABS: TROP-I INTERPRETATION NEGATIVE; TROPONIN-I 0.14 ng/mL (0.0-0.30)
[2017-10-23 06:21] LABS: BASOPHIL (%) 0.8 % (0-1); EOSINOPHIL (%) 7.7 % (0-5); EOSINOPHIL COUNT 0.3 K/uL (0-0.3); HEMOGLOBIN 10.5 G/DL (11.9-15.5); IMMATURE GRANULOCYTE (%) 0.5 % (0.0-0.7); LYMPHOCYTE (%) 3.7 % (15-42); LYMPHOCYTE COUNT 0.1 K/uL (1.0-2.8); MCHC 33.9 G/DL (30.0-36.0); MCV 103.3 FL (83-99); MONOCYTE COUNT 0.5 K/uL (0-0.8); NEUTROPHIL (%) 75.3 % (45-76); NEUTROPHIL COUNT 2.8 K/uL (1.8-6.4); PLATELET COUNT 109 K/uL (156-360); RBC DIS.WIDTH-CV 17.6 % (11.8-14.6); RBC DIS.WIDTH-SD 65.1 % (39-53); WHITE BLOOD COUNT 3.8 K/uL (4.1-10.2)
[2017-10-23 06:46] LABS: CHLORIDE 112 MEQ/L (99-109); CREATININE 1.7 MG/DL (0.6-1.3); GFR ESTIMATE (CALCULATED) 31 mL/min/; GLUCOSE 81 mg/dL (70-99); POTASSIUM 5.2 MEQ/L (3.7-5.4); SODIUM 138 MEQ/L (136-147); UREA NITROGEN (BUN) 36 mg/dL (9-23)
[2017-10-23 07:35] VITALS: BP 134/66
[2017-10-23 11:00] VITALS: BP 131/64
[2017-10-23 15:20] VITALS: BP 130/67
[2017-10-23 18:51] VITALS: BP 140/55
[2017-10-23 22:27] VITALS: BP 130/63
[2017-10-23 23:17] VITALS: BP 130/59
[2017-10-24 03:53] VITALS: BP 120/70
[2017-10-24 06:05] LABS: HEMATOCRIT 29.9 % (36.0-46.0); MCH 34.4 PG (29.0-34.0); MCHC 33.4 G/DL (30.0-36.0); MCV 102.7 FL (83-99); PLATELET COUNT 129 K/uL (156-360); RBC DIS.WIDTH-CV 17.2 % (11.8-14.6); RBC DIS.WIDTH-SD 63.9 % (39-53); RED BLOOD COUNT 2.91 M/uL (3.80-5.20); WHITE BLOOD COUNT 2.9 K/uL (4.1-10.2)
[2017-10-24 06:28] LABS: CHLORIDE 113 MEQ/L (99-109); CREATININE 1.7 MG/DL (0.6-1.3); GFR ESTIMATE (CALCULATED) 31 mL/min/; GLUCOSE 96 mg/dL (70-99); POTASSIUM 5.2 MEQ/L (3.7-5.4); SODIUM 137 MEQ/L (136-147); UREA NITROGEN (BUN) 36 mg/dL (9-23)
[2017-10-24 07:10] VITALS: BP 118/58
[2017-10-24 15:00] VITALS: BP 148/65
[2017-10-24 23:24] VITALS: BP 111/50
[2017-10-25 06:09] LABS: BASOPHIL (%) 1.3 % (0-1); EOSINOPHIL (%) 9.7 % (0-5); EOSINOPHIL COUNT 0.2 K/uL (0-0.3); HEMATOCRIT 29.2 % (36.0-46.0); HEMOGLOBIN 9.8 G/DL (11.9-15.5); LYMPHOCYTE (%) 10.1 % (15-42); LYMPHOCYTE COUNT 0.2 K/uL (1.0-2.8); MCH 34.5 PG (29.0-34.0); MCHC 33.6 G/DL (30.0-36.0); MCV 102.8 FL (83-99); MONOCYTE (%) 13.2 % (3-12); MONOCYTE COUNT 0.3 K/uL (0-0.8); NEUTROPHIL (%) 65.7 % (45-76); NEUTROPHIL COUNT 1.5 K/uL (1.8-6.4); PLATELET COUNT 125 K/uL (156-360); RBC DIS.WIDTH-CV 17.2 % (11.8-14.6); RBC DIS.WIDTH-SD 64.3 % (39-53); RED BLOOD COUNT 2.84 M/uL (3.80-5.20); WHITE BLOOD COUNT 2.3 K/uL (4.1-10.2)
[2017-10-25 07:51] VITALS: BP 130/68
[2017-10-25 07:59] LABS: CHLORIDE 112 MEQ/L (99-109); CREATININE 1.8 MG/DL (0.6-1.3); GFR ESTIMATE (CALCULATED) 29 mL/min/; GLUCOSE 95 mg/dL (70-99); POTASSIUM 5.1 MEQ/L (3.7-5.4); SODIUM 137 MEQ/L (136-147); UREA NITROGEN (BUN) 38 mg/dL (9-23)
[2017-10-25 15:06] VITALS: BP 134/82
[2017-10-26 00:44] VITALS: BP 122/62
[2017-10-26 06:33] LABS: CHLORIDE 112 MEQ/L (99-109); CREATININE 1.9 MG/DL (0.6-1.3); GFR ESTIMATE (CALCULATED) 27 mL/min/; GLUCOSE 74 mg/dL (70-99); POTASSIUM 5.1 MEQ/L (3.7-5.4); SODIUM 138 MEQ/L (136-147); UREA NITROGEN (BUN) 44 mg/dL (9-23)
[2017-10-26 08:26] VITALS: BP 115/57
[2017-10-26 15:10] VITALS: BP 116/57
[2017-10-26 21:16] VITALS: BP 120/50
[2017-10-27 00:45] VITALS: BP 118/56
[2017-10-27 06:23] LABS: HEMATOCRIT 28.5 % (36.0-46.0); HEMOGLOBIN 9.4 G/DL (11.9-15.5); MCH 34.4 PG (29.0-34.0); MCV 104.4 FL (83-99); PLATELET COUNT 134 K/uL (156-360); RBC DIS.WIDTH-CV 17.1 % (11.8-14.6); RBC DIS.WIDTH-SD 65.4 % (39-53); RED BLOOD COUNT 2.73 M/uL (3.80-5.20)
[2017-10-27 07:07] LABS: CHLORIDE 112 MEQ/L (99-109); CREATININE 1.9 MG/DL (0.6-1.3); GFR ESTIMATE (CALCULATED) 27 mL/min/; GLUCOSE 73 mg/dL (70-99); POTASSIUM 4.9 MEQ/L (3.7-5.4); SODIUM 140 MEQ/L (136-147); UREA NITROGEN (BUN) 44 mg/dL (9-23)
[2017-10-27 07:32] VITALS: BP 118/52
[2017-10-27 16:14] VITALS: BP 138/65
[2017-10-27 21:15] VITALS: BP 110/50
[2017-10-28 00:11] VITALS: BP 110/40
[2017-10-28 08:00] VITALS: BP 124/57
[2017-10-28] MEDS ORDERED: DONEPEZIL HCL5 MG PO (09:32)
[2017-10-28] MEDS ORDERED: CORDARONE200 MG PO (09:33)
[2017-10-28] MEDS ORDERED: CARVEDILOL3.125 MG PO (09:33)
[2017-10-28 09:35] VITALS: BP 124/57
[2017-10-28] MEDS ORDERED: VANCOMYCIN HCL125 MG PO (09:39)
== END 2017-10-28 16:33 | DRG 682 ==
LOC: EME 12:58 → 5EAST 17:11 → EDOF 17:11 → ENRESERV 17:13 → ENRESERVTM 17:44 → ENRESERV 17:44 → 5EAST 19:36 → ENPENDDIS 10-28 → 5EAST 10-28 16:33
PROVIDERS: Emergency Medicine; Family Medicine; Hospitalist; Internal Medicine; Internal Medicine Nephrology; Radiology Diagnostic Radiology; Student in an Organized Health Care Education/Training Program
PROC: 0W993ZX Drainage of Right Pleural Cavity, Percutaneous Approach, Diagnostic (ICD-10-PCS; principal; 2017-10-18)
PROC: 0W993ZZ Drainage of Right Pleural Cavity, Percutaneous Approach (ICD-10-PCS; principal; 2017-10-18)
PROC: 30233N1 Transfusion of Nonautologous Red Blood Cells into Peripheral Vein, Percutaneous Approach (ICD-10-PCS; principal; 2017-10-18)
PROC: 0W993ZZ Drainage of Right Pleural Cavity, Percutaneous Approach (ICD-10-PCS; 2017-10-20)
PROC: 0W993ZZ Drainage of Right Pleural Cavity, Percutaneous Approach (ICD-10-PCS; 2017-10-25)
PROC: 0W9930Z Drainage of Right Pleural Cavity with Drainage Device, Percutaneous Approach (ICD-10-PCS; 2017-10-27)
DX: N17.9 Acute kidney failure, unspecified (principal); I13.0 Hypertensive heart and chronic kidney disease with heart failure and stage 1 through stage 4 chronic kidney disease, or unspecified chronic kidney disease; I50.23 Acute on chronic systolic (congestive) heart failure; J90 Pleural effusion, not elsewhere classified; J96.01 Acute respiratory failure with hypoxia; A04.72 Enterocolitis due to Clostridium difficile, not specified as recurrent; I95.9 Hypotension, unspecified; I47.1 Supraventricular tachycardia; I48.0 Paroxysmal atrial fibrillation; E86.0 Dehydration; E87.6 Hypokalemia; E88.09 Other disorders of plasma-protein metabolism, not elsewhere classified; C90.00 Multiple myeloma not having achieved remission; D61.818 Other pancytopenia; E11.22 Type 2 diabetes mellitus with diabetic chronic kidney disease; N18.4 Chronic kidney disease, stage 4 (severe); E78.5 Hyperlipidemia, unspecified; G30.9 Alzheimer's disease, unspecified; F02.80 Dementia in other diseases classified elsewhere, unspecified severity, without behavioral disturbance, psychotic disturbance, mood disturbance, and anxiety; I25.10 Atherosclerotic heart disease of native coronary artery without angina pectoris; I25.5 Ischemic cardiomyopathy; I27.20 Pulmonary hypertension, unspecified; I35.0 Nonrheumatic aortic (valve) stenosis; J43.9 Emphysema, unspecified; R64 Cachexia; K21.9 Gastro-esophageal reflux disease without esophagitis; E03.9 Hypothyroidism, unspecified; F32.9 Major depressive disorder, single episode, unspecified; F41.9 Anxiety disorder, unspecified; Y95 Nosocomial condition; Z66 Do not resuscitate; Z96.642 Presence of left artificial hip joint; I25.2 Old myocardial infarction; Z86.73 Personal history of transient ischemic attack (TIA), and cerebral infarction without residual deficits; Z79.82 Long term (current) use of aspirin
CPT/HCPCS: 32557; 71045; 71046; 76942; 80048; 80053; 80202; 81003; 82565; 82945; 82948; 83605; 83615 91; 83880; 84157; 84484; 85025; 85027; 85610; 85730; 86850; 86900; 86901; 86920; 87040; 87070; 87205; 87493; 89051; 89190; 93005; 93970; 97530 GP; 99202; 99281; 99285; C1729; J0692; J1160; J1940; J2060; J3010; J3370; J7030; J7040; P9016

== ENCOUNTER 2017-10-31 10:17 | Emergency (ER) | payer OTHER ==
[~2017-10-31] VITALS: Ht 153.7 cm; Wt 57.7 kg
[~2017-10-31 10:17] MED LIST changes: +CORDARONE200 MG PO; +FERROUS SULFAT325 MG PO; +FEXOFENADINE H180 MG PO; +VANCOMYCIN HCL125 MG PO
[2017-10-31 11:05] LABS: BASOPHIL (%) 1.4 % (0-1); EOSINOPHIL (%) 8.4 % (0-5); EOSINOPHIL COUNT 0.3 K/uL (0-0.3); HEMATOCRIT 30.4 % (36.0-46.0); HEMOGLOBIN 10.6 G/DL (11.9-15.5); IMMATURE GRANULOCYTE (%) 0.3 % (0.0-0.7); LYMPHOCYTE (%) 7.1 % (15-42); LYMPHOCYTE COUNT 0.2 K/uL (1.0-2.8); MCH 35.8 PG (29.0-34.0); MCHC 34.9 G/DL (30.0-36.0); MCV 102.7 FL (83-99); MONOCYTE (%) 7.1 % (3-12); MONOCYTE COUNT 0.2 K/uL (0-0.8); NEUTROPHIL (%) 75.7 % (45-76); NEUTROPHIL COUNT 2.2 K/uL (1.8-6.4); PLATELET COUNT 128 K/uL (156-360); RBC DIS.WIDTH-CV 16.5 % (11.8-14.6); RED BLOOD COUNT 2.96 M/uL (3.80-5.20)
[2017-10-31 11:10] LABS: INTER. NORMALIZED RATIO 1.2
[2017-10-31 11:17] LABS: CHLORIDE 106 mEq/L (99-109); POTASSIUM 4.4 mEq/L (3.7-5.4); SODIUM 137 mEq/L (136-147)
[2017-10-31 11:18] LABS: GLUCOSE 73 mg/dL (70-99)
[2017-10-31 11:22] LABS: GFR ESTIMATE (CALCULATED) 26 mL/min/
[2017-10-31 11:23] LABS: UREA NITROGEN (BUN) 44 mg/dL (9-23)
[2017-10-31 14:17] VITALS: BP 96/46
== END 2017-10-31 14:20 ==
LOC: EME → EDBD 10:17 → EME 14:20
PROVIDERS: Emergency Medicine
DX: J90 Pleural effusion, not elsewhere classified (principal); I13.0 Hypertensive heart and chronic kidney disease with heart failure and stage 1 through stage 4 chronic kidney disease, or unspecified chronic kidney disease; I50.9 Heart failure, unspecified; N18.9 Chronic kidney disease, unspecified; J44.9 Chronic obstructive pulmonary disease, unspecified; E11.9 Type 2 diabetes mellitus without complications; F03.90 Unspecified dementia, unspecified severity, without behavioral disturbance, psychotic disturbance, mood disturbance, and anxiety; E78.5 Hyperlipidemia, unspecified; K21.9 Gastro-esophageal reflux disease without esophagitis; F32.9 Major depressive disorder, single episode, unspecified; F41.9 Anxiety disorder, unspecified; I25.2 Old myocardial infarction; Z86.73 Personal history of transient ischemic attack (TIA), and cerebral infarction without residual deficits; Z79.82 Long term (current) use of aspirin
CPT/HCPCS: 71045; 80048; 85025; 85610; 93005; 99281; 99285

== ENCOUNTER 2017-12-06 08:23 | Emergency (ER) | payer OTHER ==
[~2017-12-06] VITALS: Ht 152.4 cm; Wt 54.5 kg
[2017-12-06 09:15] LABS: BASOPHIL (%) 0.3 % (0-1); EOSINOPHIL (%) 1.4 % (0-5); EOSINOPHIL COUNT 0.1 K/uL (0-0.3); HEMATOCRIT 25.6 % (36.0-46.0); HEMOGLOBIN 8.8 G/DL (11.9-15.5); IMMATURE GRANULOCYTE (%) 1.1 % (0.0-0.7); LYMPHOCYTE (%) 3.1 % (15-42); LYMPHOCYTE COUNT 0.1 K/uL (1.0-2.8); MCH 34.5 PG (29.0-34.0); MCHC 34.4 G/DL (30.0-36.0); MONOCYTE (%) 7.4 % (3-12); MONOCYTE COUNT 0.3 K/uL (0-0.8); NEUTROPHIL (%) 86.7 % (45-76); RBC DIS.WIDTH-SD 62.2 % (39-53); RED BLOOD COUNT 2.55 M/uL (3.80-5.20); WHITE BLOOD COUNT 3.5 K/uL (4.1-10.2)
[2017-12-06 09:17] LABS: MCV 100.4 FL (83-99); PLATELET COUNT 65 K/uL (156-360)
[2017-12-06 09:22] LABS: INTER. NORMALIZED RATIO 1.6
[2017-12-06 09:25] LABS: CHLORIDE 105 mEq/L (99-109); POTASSIUM 2.7 mEq/L (3.7-5.4); PTT 34.8 SEC (25-37); SODIUM 139 mEq/L (136-147)
[2017-12-06 09:27] LABS: GLUCOSE 71 mg/dL (70-99)
[2017-12-06 09:31] LABS: CREATININE 2.6 mg/dL (0.6-1.3); GFR ESTIMATE (CALCULATED) 19 mL/min/
[2017-12-06 09:32] LABS: UREA NITROGEN (BUN) 60 mg/dL (9-23)
[2017-12-06 09:35] LABS: TROP-I INTERPRETATION NEGATIVE; TROPONIN-I 0.06 ng/mL (0.0-0.30)
[2017-12-06 11:10] LABS: APPEARANCE CLEAR ((CLEAR)); BILIRUBIN SMALL; BLOOD NEGATIVE; COLOR AMBER ((YELLOW)); GLUCOSE (STRIP) NEGATIVE; KETONES NEGATIVE; LEUKOCYTES NEGATIVE; NITRITE NEGATIVE; PROTEIN (STRIP) NEGATIVE; SPECIFIC GRAVITY 1.011 (1.000-1.030); UCUL ADDED? NO
[2017-12-06 12:40] LABS: CHLORIDE 106 mEq/L (99-109); POTASSIUM 2.9 mEq/L (3.7-5.4); SODIUM 138 mEq/L (136-147)
[2017-12-06 12:44] LABS: GLUCOSE 105 mg/dL (70-99)
[2017-12-06 12:46] LABS: CREATININE 2.5 mg/dL (0.6-1.3); GFR ESTIMATE (CALCULATED) 20 mL/min/
[2017-12-06 12:47] LABS: UREA NITROGEN (BUN) 59 mg/dL (9-23)
[2017-12-06] MEDS ORDERED: K-DUR20 MEQ PO (15:05)
[2017-12-06 17:06] VITALS: BP 106/69
== END 2017-12-06 17:08 | disposition home or self-care (01) ==
LOC: EME 08:23
PROVIDERS: Emergency Medicine
DX: R53.1 Weakness (principal); J90 Pleural effusion, not elsewhere classified; E87.6 Hypokalemia; I48.91 Unspecified atrial fibrillation; C90.00 Multiple myeloma not having achieved remission; I13.0 Hypertensive heart and chronic kidney disease with heart failure and stage 1 through stage 4 chronic kidney disease, or unspecified chronic kidney disease; I50.9 Heart failure, unspecified; N18.9 Chronic kidney disease, unspecified; I42.9 Cardiomyopathy, unspecified; E03.9 Hypothyroidism, unspecified; E11.9 Type 2 diabetes mellitus without complications; J44.9 Chronic obstructive pulmonary disease, unspecified; K21.9 Gastro-esophageal reflux disease without esophagitis; E78.5 Hyperlipidemia, unspecified; I25.2 Old myocardial infarction; F03.90 Unspecified dementia, unspecified severity, without behavioral disturbance, psychotic disturbance, mood disturbance, and anxiety; F41.9 Anxiety disorder, unspecified; F32.9 Major depressive disorder, single episode, unspecified; Z86.73 Personal history of transient ischemic attack (TIA), and cerebral infarction without residual deficits; Z96.649 Presence of unspecified artificial hip joint; Z79.82 Long term (current) use of aspirin
CPT/HCPCS: 71045; 80048; 80048 91; 81003; 84484; 85025; 85610; 85730; 93005; 99281; 99285